=== PATIENT | female | born 1990 | race African-American/Black ===

== ENCOUNTER 2016-11-04 04:15 | Emergency (ER) | payer MEDICAID ==
[~2016-11-04] VITALS: Ht 172.7 cm; Wt 76.0 kg
[2016-11-04] MEDS ORDERED: TETANUS, DIPHTHERIA, PERTUSSIS VAC/PF 0.5ML (>7YR OLD) IM ONE (06:30)
[2016-11-04] MEDS ORDERED: LIDOCAINE HCL 1% 20ML VIAL (Pyxis) INJ MC ONE (06:30)
[2016-11-04] MEDS ORDERED: BACITRACIN ZINC OINT UDPKT TOP ONE (06:30)
[2016-11-04] MEDS ORDERED: IBUPROFEN 600MG TABLET PO ONE (06:30)
[2016-11-04 08:26] VITALS: BP 117/58
== END 2016-11-04 09:13 | disposition home or self-care (01) ==
LOC: ER 04:15
DX: S81.012A Laceration without foreign body, left knee, initial encounter (principal); F17.200 Nicotine dependence, unspecified, uncomplicated; Z88.2 Allergy status to sulfonamides; Z88.1 Allergy status to other antibiotic agents; W19.XXXA Unspecified fall, initial encounter; Y93.89 Activity, other specified; Y92.89 Other specified places as the place of occurrence of the external cause; Y99.8 Other external cause status
CPT/HCPCS: 12001; 73562; 81025; 90471; 90715; 99284; J3490; J7030; X7700; Z7610; A4315

== ENCOUNTER 2016-11-09 07:31 | Emergency (ER) | payer MEDICAID ==
[~2016-11-09] VITALS: Ht 165.1 cm; Wt 70.0 kg
[2016-11-09 09:00] VITALS: BP 110/77
== END 2016-11-09 10:00 | disposition home or self-care (01) ==
LOC: ER 09:09
DX: Z48.02 Encounter for removal of sutures (principal); Z88.1 Allergy status to other antibiotic agents; Z88.2 Allergy status to sulfonamides
CPT/HCPCS: 99281

== ENCOUNTER 2016-11-12 07:13 | Emergency (ER) | payer MEDICAID ==
[~2016-11-12] VITALS: Ht 170.2 cm; Wt 76.0 kg
[2016-11-12 07:40] VITALS: BP 132/64
== END 2016-11-12 10:25 | disposition home or self-care (01) ==
LOC: ER 10:25
DX: S81.012D Laceration without foreign body, left knee, subsequent encounter (principal); Z88.1 Allergy status to other antibiotic agents; Z88.2 Allergy status to sulfonamides; X58.XXXD Exposure to other specified factors, subsequent encounter; Y92.89 Other specified places as the place of occurrence of the external cause; Y99.8 Other external cause status
CPT/HCPCS: 99281; Z7610

== ENCOUNTER 2016-11-17 07:24 | Emergency (ER) | payer MEDICAID ==
[~2016-11-17] VITALS: Ht 170.2 cm; Wt 79.0 kg
[2016-11-17 07:54] VITALS: BP 127/52
== END 2016-11-17 08:28 | disposition home or self-care (01) ==
LOC: ER 07:49
DX: Z48.02 Encounter for removal of sutures (principal); Z88.2 Allergy status to sulfonamides; Z88.1 Allergy status to other antibiotic agents
CPT/HCPCS: 99282

== ENCOUNTER 2016-11-19 07:59 | Emergency (ER) | payer MEDICAID ==
[~2016-11-19] VITALS: Ht 170.2 cm; Wt 77.0 kg
[2016-11-19 08:03] VITALS: BP 126/71
== END 2016-11-19 09:28 | disposition home or self-care (01) ==
LOC: ER 08:23
DX: S81.012D Laceration without foreign body, left knee, subsequent encounter (principal); Z72.0 Tobacco use; Z88.1 Allergy status to other antibiotic agents; Z88.2 Allergy status to sulfonamides; X58.XXXD Exposure to other specified factors, subsequent encounter; Y92.89 Other specified places as the place of occurrence of the external cause; Y99.8 Other external cause status
CPT/HCPCS: 99281; Z7610

== ENCOUNTER 2017-02-13 16:58 | Emergency (ER) | payer MEDICAID ==
[~2017-02-13] VITALS: Ht 165.1 cm; Wt 82.0 kg
[2017-02-13 21:29] VITALS: BP 118/68
== END 2017-02-13 21:31 | disposition home or self-care (01) ==
LOC: ER 19:15
DX: S00.512A Abrasion of oral cavity, initial encounter (principal); F17.200 Nicotine dependence, unspecified, uncomplicated; Z88.2 Allergy status to sulfonamides; Z88.1 Allergy status to other antibiotic agents; X58.XXXA Exposure to other specified factors, initial encounter; Y93.89 Activity, other specified; Y92.89 Other specified places as the place of occurrence of the external cause; Y99.8 Other external cause status
CPT/HCPCS: 99282

== ENCOUNTER 2017-07-31 18:36 | Emergency (ER) | payer MEDICAID, OTHER ==
[~2017-07-31] VITALS: Ht 162.6 cm; Wt 86.0 kg
[2017-07-31] MEDS ORDERED: KETOROLAC 60MG/2ML VIAL IM STA (22:59)
[2017-07-31] MEDS ORDERED: PENICILLIN G BENZATHINE 1,200,000 UNITS/2ML SYR IM ONE (23:00)
[2017-08-01 00:16] VITALS: BP 132/65
== END 2017-08-01 00:17 | disposition home or self-care (01) ==
LOC: ER 19:19
DX: J02.8 Acute pharyngitis due to other specified organisms (principal); B96.89 Other specified bacterial agents as the cause of diseases classified elsewhere; Z88.1 Allergy status to other antibiotic agents; Z88.2 Allergy status to sulfonamides
CPT/HCPCS: 87070; 87430; 96372; 99284; J0561; J1885

== ENCOUNTER 2020-02-19 23:19 | Emergency (ER) | payer MEDICAID, OTHER ==
[~2020-02-19] VITALS: Ht 167.6 cm; Wt 78.0 kg
[2020-02-20] MEDS ORDERED: LIDOCAINE 1%/EPI 1:100,000 10 ML VIAL IJ ONE (00:15)
[2020-02-20] MEDS ORDERED: BACITRACIN ZINC OINT UDPKT TOP ONE (00:15)
[2020-02-20 02:20] VITALS: BP 113/61
== END 2020-02-20 02:21 | disposition home or self-care (01) ==
LOC: ER 23:19
DX: N75.0 Cyst of Bartholin's gland (principal); Z98.890 Other specified postprocedural states
CPT/HCPCS: 99283; J3490; Z7610; 99282

== ENCOUNTER 2020-07-11 02:48 | Emergency (ER) | payer OTHER ==
[~2020-07-11] VITALS: Ht 167.6 cm; Wt 79.0 kg
[2020-07-11 03:10] VITALS: BP 117/63
[2020-07-11] MEDS ORDERED: TETANUS, DIPHTHERIA, PERTUSSIS VAC/PF 0.5ML (>7YR OLD) IM ONE (04:15)
[2020-07-11] MEDS ORDERED: LIDOCAINE HCL/PF 1% 10 MG/ML 5ML VIAL IJ ONE (04:15)
[2020-07-11] MEDS ORDERED: IBUPROFEN 600MG TABLET PO ONE (04:15)
[2020-07-11] MEDS ORDERED: BACITRACIN ZINC OINT UDPKT TOP ONE (04:30)
== END 2020-07-11 05:49 | disposition home or self-care (01) ==
LOC: ER 02:48
DX: S61.210A Laceration without foreign body of right index finger without damage to nail, initial encounter (principal); S56.411A Strain of extensor muscle, fascia and tendon of right index finger at forearm level, initial encounter; Y93.9 Activity, unspecified; Y92.9 Unspecified place or not applicable; Z88.2 Allergy status to sulfonamides; Z93.3 Colostomy status; Z98.890 Other specified postprocedural states
CPT/HCPCS: 99282